=== PATIENT | female | born 1935 | race Caucasian/White ===

== ENCOUNTER 2016-07-24 11:59 | Emergency (ER) | payer OTHER ==
[2016-07-24 12:05] VITALS: BP 151/83; PULSE 103; TEMP 98.4; BMI 16.2
--- NOTE | 2016-07-24 13:42 | PDOC ---
History of Present Illness - General Chief Complaint: Injury Stated Complaint: FALL Time Seen by Provider: 07/24/16 12:26 History Source: Patient, Family - History of Present Illness Initial Comments: 07/24/16 13:42 Pt. is an 81 y/o female with a PMH of HTN, HLD, glaucoma, cataracts, who presents to the ED today c/o b/l wrist pain after falling yesterday 07/23/16. Pt. states that she slipped on a rug in the lobby of her apartment building and fell backwards and landing on both wrists. Pt. states she also hit her head, but did not lose consciousness. Pt. denies taking blood thinners. Pt. states that her wrists hurt after falling, but otherwise feels fine. She is able to recall all events related to the fall. Denies visual changes, vomiting after falling, flashing lights, double vision, chest pain, SOB, n/v/d. Past History - Travel Traveled outside of the country in the last 30 days: No Close contact w/someone who was outside of country & ill: No - Past Medical History Allergies/Adverse Reactions: Allergies Allergy/AdvReac Type Severity Reaction Status Date / Time Penicillins Allergy Intermediate Hives Verified 07/24/16 12:05 Home Medications: Ambulatory Orders Atorvastatin Ca [Lipitor -] 20 mg PO HS 02/15/14 Cholecalciferol (Vitamin D3) [Vitamin D] 1,000 unit PO DAILY 02/15/14 Ferrous Sulfate [Feosol -] 325 mg PO BID 02/15/14 Lisinopril/Hydrochlorothiazide [Lisinopril-Hctz 20-25 mg Tab] 1 each PO DAILY Aspirin [Ecotrin] 81 mg PO DAILY 02/16/14 Diabetes: Yes HTN: Yes Hypercholesterolemia: Yes Thyroid Disease: No - Psycho/Social/Smoking Cessation Hx Anxiety: No Suicidal Ideation: No Smoking History: Never smoked Have you smoked in the past 12 months: No If you are a former smoker, when did you quit?: 7YRS AGO Hx Alcohol Use: No Drug/Substance Use Hx: No Substance Use Type: None Review of Systems - Review of Systems Able to Perform ROS?: Yes Is the patient limited French proficient: Yes Constitutional: No: Chills, Fever, Weakness HEENTM: Yes: Cataracts. No: Eye Pain, Blurred Vision, Recent change in vision, Ear Discharge, Mouth Pain Respiratory: No: Cough, Shortness of Breath Cardiac (ROS): No: Chest Pain, Lightheadedness, Syncope ABD/GI: No: Diarrhea, Nausea, Vomiting Musculoskeletal: Yes: Joint Pain (L and R wrist) Integumentary: Yes: Bruising (L wrist) Neurological: Yes: Unsteady Gait. No: Headache, Tingling, Weakness, Dizziness *Physical Exam - Vital Signs Last Vital Signs Temp Pulse Resp BP Pulse Ox 98.4 F 103 H 20 151/83 97 07/24/16 12:01 07/24/16 12:07/24/16 12:07/24/16 12:07/24/16 12:01 - Physical Exam General Appearance: Yes: Nourished, Appropriately Dressed. No: Apparent Distress HEENT: positive: EOMI, JODEE (Lense replacement in L eye), Normal ENT Inspection , Normal Voice, TMs Normal (No hemotympanum, (-) raccoon sign, (-) coulter sign ) , Pharynx Normal Neck: positive: Trachea midline, Supple. negative: Tender, Rigid, Decreased range of motion Respiratory/Chest: positive: Lungs Clear, Normal Breath Sounds. negative: Respiratory Distress, Accessory Muscle Use Cardiovascular: positive: Regular Rhythm, Regular Rate, S1, S2 (present). negative: Murmur (rubs or gallops) Extremity: positive: Normal Capillary Refill, Normal Range of Motion, Tender ( Point tenderness of L and R ulnar heads), Pelvis Stable, Other (Radial pulses 2 + B/L and regular). 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 is an 81 y/o female with a PMH of HTN, HLD, glaucoma, cataracts, who presents to the ED today c/o b/l wrist pain after falling yesterday 07/23/16. Pt. is AAOx3, and recalls the event well. Given that the fall was over 24 hours ago, lack of neurological symptoms, intact neurological exam and no LOC at time of fall, low suspision for head injury, will not CT scan at this time. Pain in R wrist worse than L wrist. Will order wrist x-rays to r/o fracture. Pain is currently under control. Will re-evaluate 07/24/16 14:26 Wrist x-rays are negative for any bony abnormalities. Will discharge home at this time. FELIPE wrap given for R wrist pain. Pt. given strict return protocol including to return if she has, new headaches, dizziness, visual changes, or weakness. Pt. understands all discharge instructions and all questions were answered at this time. *DC/Admit/Observation/Transfer Diagnosis at time of Disposition: Wrist pain Qualifiers: Laterality: right Qualified Code(s): M25.531 - Pain in right wrist - Discharge Dispostion Admit: No - Referrals Referrals: Sarai Mccauley MD [Primary Care Provider] - - Patient Instructions Printed Discharge Instructions: DI for Wrist Pain Additional Instructions: David fernandez. Amanda radiografas no muestran evidencia de huesos rotos. Usted puede pete Tylenol o Motrin segn sea necesario para mckay dolor en la mueca. El chepe del examen fue normal hoy. Descanse helene los prximos desai, ya que es comn estar dolorido despus de caer. Roderick un seguimiento con mckay mdico de atencin primaria en bakari semana. Vuelva al departamento de urgencias si tiene dolor que empeora, nuevo dolor de dmitriy, cambios visuales o cualquier cambio en amanda sntomas. Print Language: GREENLANDIC
== END 2016-07-24 14:37 | disposition home or self-care (01) ==
LOC: JERFT 11:59
DX: M25.531 Pain in right wrist (principal); W18.39XA Other fall on same level, initial encounter; Y93.89 Activity, other specified; Y92.039 Unspecified place in apartment as the place of occurrence of the external cause; I10 Essential (primary) hypertension; E78.5 Hyperlipidemia, unspecified; H40.9 Unspecified glaucoma
CPT/HCPCS: 73110-TC-LT; 73110-TC-RT; 73130-TC-LT; 73130-TC-RT; 99281-25

== ENCOUNTER 2023-04-12 11:11 | Inpatient (IN) | payer OTHER ==
[2023-04-12 12:04] VITALS: BMI 17.4
[2023-04-12 12:33] LABS: BASO % 0.2 % (0-2.0); EOS % 1.4 % (0-4.5); HEMATOCRIT 39.5 % (32.4-45.2); HEMOGLOBIN 13.1 GM/dL (10.7-15.3); LYMPH % 14.9 % (8-40); MCHC 33.3 g/dl (32.0-36.0); MEAN CELL VOLUME 93.2 fl (80-96); MEAN PLT VOLUME 9.3 fl (7.5-11.1); MONO % 6.1 % (3.8-10.2); NEUT % 77.4 % (42.8-82.8); PLATELET COUNT 245 10^3/uL (134-434); RBC 4.24 M/mm3 (3.60-5.2); RDW 14.2 % (11.6-15.6); WHITE BLOOD COUNT 11.1 K/mm3 (4.0-10.0)
[2023-04-12 13:17] LABS: ALBUMIN 3.4 g/dl (3.4-5.0); BLOOD UREA NITROGEN 18.4 mg/dL (7-18); CALCIUM 8.8 mg/dL (8.5-10.1)
[2023-04-12 13:20] LABS: CREATININE 1.1 mg/dL (0.55-1.3)
[2023-04-12 13:21] LABS: BILIRUBIN,TOTAL 0.3 mg/dL (0.2-1)
[2023-04-12 13:22] LABS: TOT PROT 6.8 g/dl (6.4-8.2)
[2023-04-12] MEDS: ALBUTEROL SO4 2.5/IPRATROPIUM 0.5 INH SOL 3 ML VIAL.NEB. NEB SCH (13:22)
[2023-04-12 13:23] LABS: N-TERMINAL BNP 592.7 pg/ml (5-450)
[2023-04-12] MEDS ORDERED: ACETAMINOPHEN 325 MG TABLET (FP) ONE (13:30)
[2023-04-12] MEDS: SODIUM CHLORIDE 0.9% 500 ML INFUS.BAG IV ONE ×2 (13:40→16:51)
[2023-04-12] MEDS: ACETAMINOPHEN 500 MG TABLET (FP) PO ONE (13:40)
[2023-04-12 14:39] LABS: LACTIC ACID 2.7 mmol/L (0.4-2.0)
[2023-04-12] MEDS ORDERED: DEXAMETHASONE SOD PHOSPHATE 10 MG/1 ML VIAL ONE (16:39)
[2023-04-12] MEDS: DEXAMETHASONE SOD PHOSPHATE 10 MG/1 ML VIAL IVPUSH ONE (16:51)
[2023-04-12] MEDS ORDERED: METOPROLOL TARTRATE 50 MG TABLET (FP) PO SCH (20:00)
[2023-04-12] MEDS ORDERED: HEPARIN NA (PORCINE) 5,000 UNITS/ML 1ML VIAL ONE (22:25)
[2023-04-12] MEDS: HEPARIN NA (PORCINE) 5,000 UNITS/ML 1ML VIAL SQ SCH (22:31)
[2023-04-13 01:00] LABS: LACTIC ACID 5.8 mmol/L (0.4-2.0)
[2023-04-13 09:10] LABS: MAGNESIUM 1.8 mg/dL (1.8-2.4)
[2023-04-13] MEDS: ASPIRIN COATED 81 MG TABLET.EC PO SCH (10:45)
[2023-04-13 16:36] LABS: LACTIC ACID 3.4 mmol/L (0.4-2.0)
[2023-04-13] MEDS: REMDESIVIR 200 MG in SODIUM CHLORIDE 250 ML IVPB ONE (19:16)
[2023-04-13] MEDS ORDERED: ATORVASTATIN CA 20 MG TABLET (FP) PO SCH (22:00)
[2023-04-13] MEDS: ATORVASTATIN CA 40 MG TABLET (FP) PO SCH (22:10)
[2023-04-14 09:19] LABS: HEMATOCRIT 35.5 % (32.4-45.2); MCH 31.4 pg (25.7-33.7); MCHC 33.9 g/dl (32.0-36.0); MEAN CELL VOLUME 92.6 fl (80-96); MEAN PLT VOLUME 9.6 fl (7.5-11.1); PLATELET COUNT 240 10^3/uL (134-434); RBC 3.83 M/mm3 (3.60-5.2); RDW 14.5 % (11.6-15.6); WHITE BLOOD COUNT 17.8 K/mm3 (4.0-10.0)
[2023-04-14 09:21] LABS: POTASSIUM 3.4 mmol/L (3.5-5.1)
[2023-04-14 09:34] LABS: ALBUMIN 3.6 g/dl (3.4-5.0); BLOOD UREA NITROGEN 25.4 mg/dL (7-18); CALCIUM 9.4 mg/dL (8.5-10.1); MAGNESIUM 1.9 mg/dL (1.8-2.4)
[2023-04-14 09:36] LABS: BILIRUBIN,DIRECT 0.1 mg/dL (0.0-0.2)
[2023-04-14 09:37] LABS: PHOSPHOROUS 2.4 mg/dL (2.5-4.9)
[2023-04-14 09:38] LABS: BILIRUBIN,TOTAL 0.4 mg/dL (0.2-1); TOT PROT 6.8 g/dl (6.4-8.2)
[2023-04-14] MEDS: guaiFENesin 600 MG TABLET.ER (FP) PO SCH (10:35)
[2023-04-14] MEDS: REMDESIVIR 100 MG in SODIUM CHLORIDE 270 ML IVPB SCH (10:35)
[2023-04-14] MEDS: ACETAMINOPHEN 500 MG TABLET (FP) PO PRN (10:44)
[2023-04-14] MEDS: SODIUM CHLORIDE 1,000 ML IV SCH (14:09)
[2023-04-14] MEDS: POTASSIUM CHLORIDE ORAL LIQUID 20 MEQ/15 ML PO ONE (21:00)
[2023-04-14] MEDS: NAPH,MB-DB/K PH,MBDB POWDER PACKET PO ONE (21:00)
[2023-04-15 06:52] LABS: HEMATOCRIT 38.8 % (32.4-45.2); HEMOGLOBIN 12.7 GM/dL (10.7-15.3); MCH 30.7 pg (25.7-33.7); MCHC 32.7 g/dl (32.0-36.0); MEAN CELL VOLUME 93.8 fl (80-96); PLATELET COUNT 240 10^3/uL (134-434); RBC 4.14 M/mm3 (3.60-5.2); RDW 14.6 % (11.6-15.6); WHITE BLOOD COUNT 13.8 K/mm3 (4.0-10.0)
[2023-04-15 07:10] LABS: POTASSIUM 4.3 mmol/L (3.5-5.1)
[2023-04-15 07:19] LABS: CALCIUM 8.6 mg/dL (8.5-10.1)
[2023-04-15 07:20] LABS: ALBUMIN 3.7 g/dl (3.4-5.0); BLOOD UREA NITROGEN 19.2 mg/dL (7-18)
[2023-04-15 07:23] LABS: CREATININE 0.8 mg/dL (0.55-1.3)
[2023-04-15 07:25] LABS: BILIRUBIN,TOTAL 0.7 mg/dL (0.2-1)
[2023-04-15] MEDS: LACTOBACILLUS ACIDOPHILUS 1 TABLET PO ONE (12:24)
[2023-04-15] MEDS: ONDANSETRON *ODT* 4 MG TABLET SL ONE (12:24)
[2023-04-16] MEDS: LISINOPRIL 5 MG TABLET PO SCH (10:04)
[2023-04-16 10:06] VITALS: RESP 18
[2023-04-16] MEDS: LISINOPRIL 10 MG TABLET PO ONE (11:03)
[2023-04-16 14:52] VITALS: PULSE 83
[2023-04-16 15:17] VITALS: BP 122/75; TEMP 98.8
[2023-04-16] MEDS ORDERED: ATORVASTATIN CA 80 MG TABLET (FP) PO SCH (22:00)
== END 2023-04-16 17:35 | disposition home or self-care (01) | DRG 137 ==
LOC: JER 11:11 → JERBED 16:12 → J4W 04-13 00:30 → OBSVTOIN 04-14 09:34
PROVIDERS: ADMIT Internal Medicine; ATTEND Internal Medicine
PROC: XW033E5 Introduction of Remdesivir Anti-infective into Peripheral Vein, Percutaneous Approach, New Technology Group 5 (ICD-10-PCS; principal; 2023-04-13)
DX: U07.1 COVID-19 (principal); I10 Essential (primary) hypertension; E78.5 Hyperlipidemia, unspecified; H40.9 Unspecified glaucoma; R94.31 Abnormal electrocardiogram [ECG] [EKG]; I24.89 Other forms of acute ischemic heart disease
CPT/HCPCS: 0241U-QW; 36415; 71045-TC-FY; 80048; 80053; 80061; 80076; 82550; 82553; 83036; 83605; 83735; 83880; 84100; 84443; 84484; 85025; 85027; 87040; 93005; 93010; 93306-TC; 97116-GP; 97161-GP; 99285-25; G0378; J0248; J1100; J1644; Q0162